=== PATIENT | female | born 1960 | race African-American/Black ===

== ENCOUNTER 2016-06-25 01:14 | Emergency (ER) | payer OTHER ==
[~2016-06-25] VITALS: Ht 170.2 cm; Wt 65.0 kg
[~2016-06-25 01:14] MED LIST: METF10002 PO; TRAZ-144 PO
[2016-06-25 01:37] LABS: GLUCOSE,POINT OF CARE 88 MG/DL (70-110)
[2016-06-25] MEDS ORDERED: SODIUM PHOS/SODIUM BIPHOS 133 ML ENEMA PR ONE (03:30)
[2016-06-25] MEDS ORDERED: MAGNESIUM CITRATE 300 ML ORAL SOLUTION PO ONE (03:30)
[2016-06-25] MEDS ORDERED: TraMADol HCL 50 MG TABLET PO ONE (04:45)
[2016-06-25 04:50] VITALS: BP 129/78
== END 2016-06-25 04:53 | disposition home or self-care (01) ==
LOC: EMS 01:15
DX: K62.89 Other specified diseases of anus and rectum (principal); K59.00 Constipation, unspecified; K64.9 Unspecified hemorrhoids; E11.9 Type 2 diabetes mellitus without complications; F17.210 Nicotine dependence, cigarettes, uncomplicated; I10 Essential (primary) hypertension; Z86.73 Personal history of transient ischemic attack (TIA), and cerebral infarction without residual deficits
CPT/HCPCS: 82962; 99284; 99406

== ENCOUNTER 2019-11-06 09:00 | Emergency (ER) | payer OTHER ==
[~2019-11-06] VITALS: Ht 172.7 cm; Wt 77.3 kg
[2019-11-06] MEDS: HYDROmorphone 2 MG/ML SYRINGE IM ONE (11:25)
[2019-11-06] MEDS: KETOROLAC TROMETHAMINE 60 MG/2 ML VIAL IM ONE (11:25)
[2019-11-06] MEDS: ONDANSETRON HCL 4 MG/2 ML VIAL IM ONE (11:25)
[2019-11-06 11:35] VITALS: BP 142/76
[2019-11-06 12:33] LABS: GLUCOSE,POINT OF CARE 106 MG/DL (70-110)
== END 2019-11-06 11:43 | disposition home or self-care (01) ==
LOC: EMS 09:06
DX: K04.7 Periapical abscess without sinus (principal); E11.9 Type 2 diabetes mellitus without complications; I10 Essential (primary) hypertension; F20.9 Schizophrenia, unspecified; F17.210 Nicotine dependence, cigarettes, uncomplicated
CPT/HCPCS: 82962; 96372; 99284; J1170; J1885; J2405